=== PATIENT | male | born 1965 | race Caucasian/White ===

== ENCOUNTER 2021-11-24 08:56 | Day surgery (SDC) | payer BC ==
[2021-11-23 09:22] VITALS: BMI 31.6
[~2021-11-24 08:56] MED LIST: LACTATED RINGERS 1,000 ML IV SCH; SODIUM CHLORIDE 0.9% 1,000 ML IV SCH; fentaNYL (PF) 50 MCG/ML 2 ML AMP IV PRN
[2021-11-24 10:22] LABS: Calcium 10.3 mg/dL (8.4-10.2); Potassium 3.8 mmol/L (3.5-5.1)
[2021-11-24] MEDS ORDERED: LIDOCAINE 2% INJ 20 MG/ML (2 ML VIAL) ONE (10:35)
[2021-11-24] MEDS ORDERED: PROPOFOL 10 MG/ML 20 ML VIAL IV ONE (10:35)
[2021-11-24 11:23] VITALS: RESP 16; TEMP 98
[2021-11-24 13:08] VITALS: BP 125/73; PULSE 70
--- NOTE | 2021-11-25 06:53 | ECHOT ---
TRANSESOPHAGEAL ECHOCARDIOGRAM INDICATION: Persistent atrial fibrillation to rule out intracardiac thrombus. PROCEDURE NOTE: After obtaining informed consent, transesophageal echocardiogram was performed in left lateral position using an Omniplane probe. Local and IV sedation were obtained by the office communication professor. The patient tolerated the procedure well without any obvious immediate complications. A 2D color Doppler and spectral analysis had been performed. FINDINGS: 1. There is no intracardiac thrombus within the left atrial appendage, left atrium, right atrium, right ventricle, or left ventricle. 2. There is mild biatrial enlargement. 3. Left ventricle has normal size and systolic function. 4. Aortic valve is a 3-leaflet valve. There is no evidence of aortic stenosis or regurgitation. 5. Mitral valve appears anatomically normal. There is mild central mitral regurgitation noted. There is mild tricuspid regurgitation noted. 6. Interatrial septum, there is no evidence of [id number] shunt by color-flow Doppler or [id number] shunt by agitated saline contrast study. CONCLUSION: 1. No intracardiac thrombus. 2. Normal left ventricular function. PLAN: We will proceed with cardioversion. MMODL / IJN: [id number] /
== END 2021-11-24 12:40 | disposition home or self-care (01) ==
LOC: CATHCVL 08:56
PROVIDERS: ATTEND Internal Medicine Cardiovascular Disease
DX: I48.19 Other persistent atrial fibrillation (principal); I10 Essential (primary) hypertension; E78.5 Hyperlipidemia, unspecified; G47.33 Obstructive sleep apnea (adult) (pediatric); K21.9 Gastro-esophageal reflux disease without esophagitis; Z79.01 Long term (current) use of anticoagulants; Z79.899 Other long term (current) drug therapy; Z79.811 Long term (current) use of aromatase inhibitors; Z88.6 Allergy status to analgesic agent
CPT/HCPCS: 93312; 93320; 93325; 92960; 80048; J2704; J2001

== ENCOUNTER 2024-06-28 15:39 | Observation (INO) | payer BC ==
--- NOTE | 2024-06-28 17:10 | ED ---
Abdominal Pain HPI - General Source: patient, RN notes reviewed Mode of arrival: ambulatory Limitations: no limitations <Magui Cid - Last Filed: 06/28/24 17:09> - General Source: patient, family (), RN notes reviewed Mode of arrival: ambulatory Limitations: no limitations <Adriana Bradshaw - Last Filed: 06/29/24 06:05> - General Chief Complaint: Abdominal Pain Stated Complaint: ABD Pain Time Seen by Provider: 06/28/24 15:58 - History of Present Illness Initial Comments: Quick [id number] male presenting to the emergency department for complaint of left flank pain patient to the ambulance started at 1500 this evening. Patient states he noticed that his urine was discolored. Denies history of kidney stones. (Magui Cid) 58-year-old male with a past medical history significant of atrial fibrillation on Xarelto, GERD, hypertension and hyperlipidemia presenting to the ER for evaluation of left flank pain. Patient states around 3:20 PM he started to expe rience a severe left flank pain. He states pain did radiate into his left lower quadrant. He states most of his pain currently is in his left lower quadrant. Patient does report this morning he noticed his urine was very dark. He denies any dysuria. Patient also admits to nausea and vomiting given pain. He has not taken anything for pain at this time. Patient denies a history of kidney stones or kidney disease. Patient does admit to diarrhea but states this is chronic in nature. Prior hernia repair no history of bowel resections. Patient denies any fevers, chills, chest pain, shortness of breath, constipation or peripheral edema. (Adriana Bradshaw) - Related Data Home Medications Medication Instructions Recorded Confirmed Anastrozole [Arimidex] 1 mg PO MOWEFR@2100 11/23/21 06/28/24 Atorvastatin [Lipitor] 10 mg PO DAILY 11/23/21 06/28/24 Latanoprostene Bunod [Vyzulta] 1 drop BOTH EYES HS 11/23/21 06/28/24 Pantoprazole [Protonix] 40 mg PO HS 11/23/21 06/28/24 Rivaroxaban [Xarelto] 20 mg PO HS 11/23/21 06/28/24 Sertraline [Zoloft] 50 mg PO DAILY 11/23/21 06/28/24 atenoloL 100 mg PO HS 11/23/21 06/28/24 Losartan/Hydrochlorothiazide 1 tab PO DAILY 06/28/24 06/28/24 [Hyzaar 100-25 Tablet] Allergies Allergy/AdvReac Type Severity Reaction Status Date / Time acetaminophen [From Tylenol] AdvReac SNEEZING, Verified 06/28/24 19:52 RUNNY NOSE Review of Systems ROS Other: All systems not noted in ROS Statement are negative. <Magui Cid - Last Filed: 06/28/24 17:09> ROS Other: All systems not noted in ROS Statement are negative. <Adriana Bradshaw - Last Filed: 06/29/24 06:05> ROS Statement: Those systems with pertinent positive or pertinent negative responses have been documented in the HPI. Past Medical History Past Medical History: Atrial Fibrillation, Cancer, Eye Disorder, GERD/Reflux, Hyperlipidemia, Hypertension Additional Past Medical History / Comment(s): BILAT GLAUCOMA. HX SKIN CANCER- CHEST AREA 23 YRS AGO History of Any Multi-Drug Resistant Organisms: None Reported Past Surgical History: Hernia Repair Additional Past Surgical History / Comment(s): REMOVAL MELANOMA CHEST AREA Past Anesthesia/Blood Transfusion Reactions: No Reported Reaction Past Psychological History: Anxiety Smoking Status: Never smoker - Past Family History Mother Family Medical History: No Reported History <Magui Cid - Last Filed: 06/28/24 17:09> General Exam Limitations: no limitations <Magui Cid - Last Filed: 06/28/24 17:09> General appearance: alert, in no apparent distress Respiratory exam: Present: normal lung sounds bilaterally. Absent: respiratory distress, wheezes, rales, rhonchi, stridor Cardiovascular Exam: Present: regular rate, normal rhythm, normal heart sounds. Absent: systolic murmur, diastolic murmur, rubs, gallop, clicks GI/Abdominal exam: Present: soft, normal bowel sounds. Absent: distended, tenderness, guarding, rebound, rigid Extremities exam: Present: normal inspection, full ROM, normal capillary refill. Absent: tenderness, pedal edema, joint swelling, calf tenderness Back exam: Present: normal inspection Neurological exam: Present: alert, oriented X3, CN II-XII intact Skin exam: Present: warm, dry, intact, normal color. Absent: rash <Adriana Bradshaw - Last Filed: 06/29/24 06:05> - General Exam Comments Initial Comments: Visual Physical Exam Vital signs reviewed General: Well-appearing, nontoxic, no acute distress. Head: Normocephalic, atraumatic Eyes: PERRLA, EOMI ENT: Airway patent Chest: Nonlabored breathing Skin: No visual rash, normal skin tone Neuro: Alert and oriented 3 Musculoskeletal: No gross abnormalities (Magui Cid) Course <Adriana Bradshaw - Last Filed: 06/29/24 06:05> Vital Signs 06/28/24 06/28/24 06/28/24 16:07 19:41 20:56 Temperature 97.5 F L 98.5 F Pulse Rate 85 99 95 Respiratory 17 18 16 Rate Blood Pressure 190/108 150/84 131/88 O2 Sat by Pulse 98 99 95 Oximetry - Reevaluation(s) Reevaluation #1: 06/28/24 19:51 Case discussed with Sound physician, Dr. Alan accepts admission. He would a lso like urology on consult and aware as patient may need ureteral stent given left-sided hydronephrosis. Case also discussed with on-call urology, who accepts consultation. (Adriana Bradshaw) Medical Decision Making <Magui Cid - Last Filed: 06/28/24 17:09> - Lab Data Result diagrams: 06/29/24 02:44 06/29/24 02:44 - Radiology Data Radiology results: report reviewed, image reviewed <Adriana Bradshaw - Last Filed: 06/29/24 06:05> - Medical Decision Making I completed the quick note portion of this chart signed Magui Cid PA-C (Magui Cid) Was pt. sent in by a medical professional or institution (MAYA Arnett, ECHOCARDIOGRAPHER, urgent care, hospital, or [facility]...) When possible be specific @ -No Did you speak to anyone other than the patient for history (EMS, parent, family, police, friend...)? What history was obtained from this source @ -Patient's , at bedside, aiding in HPI and past medical history. Did you review nursing and triage notes (agree or disagree)? Why? @ -I reviewed and agree with nursing and triage notes Were old charts reviewed (outside hosp., previous admission, EMS record, old EKG, old radiological studies, urgent care reports/EKG's, [facility] records)? Report findings @ -No old charts were reviewed Differential Diagnosis (chest pain, altered mental status, abdominal pain women, abdominal pain men, vaginal bleeding, weakness, fever, dyspnea, syncope, headache, dizziness, GI bleed, back pain, seizure, CVA, palpatations, mental health, musculoskeletal)? @ -Differential Abdominal Pain Men:Appendicitis, cholecystitis, diverticulosis, ischemic bowel, pancreatitis, hepatitis, UTI, gastroenteritis, AAA, incarcerated hernia, bowel obstruction, constipation, inflammatory bowel, hepatitis, peptic ulcer disease, splenic infarction, perforated viscus, testicular torsion, this is not meant to be an all-inclusive list EKG interpreted by me (3pts min.). @ -None done X-rays interpreted by me (1pt min.). @ -None done CT interpreted by me (1pt min.). @ -CT abdomen pelvis showing mild hydronephrosis with a prominent left kidney. There is also perinephric stranding to the left kidney concerning of pyelonephritis. Irregular lobular density within the mid abdomen may be some enlarged abnormal adenopathy consider lymphoma. U/S interpreted by me (1pt. min.). @ -None done What testing was considered but not performed or refused? (CT, X-rays, U/S, labs)? Why? @ -None What meds were considered but not given or refused? Why? @ -None Did you discuss the management of the patient with other professionals (professionals i.e. , PA, ECHOCARDIOGRAPHER, lab, RT, psych nurse, health social work professor, surgical device sales representative, teacher, tank officer, shelter case manager)? Give summary @ -Yes, case discussed with sound physician, Dr. Howe, who accepts admission. He is requesting urology consultation and notification for possible stent placement given hydronephrosis. Case discussed with on-call urology, who accepts consultation. Was smoking cessation discussed for >3mins.? @ -No Was critical care preformed (if so, how long)? @ -No Were there social determinants of health that impacted care today? How? (Homelessness, low income, unemployed, alcoholism, drug addiction, transportation, low edu. Level, literacy, decrease access to med. care, custodial, rehab)? @ -No Was there de-escalation of care discussed even if they declined (Discuss DNR or withdrawal of care, Hospice)? DNR status @ -No What co-morbidities impacted this encounter? (DM, HTN, Smoking, COPD, CAD, Cancer, CVA, ARF, Chemo, Hep., AIDS, mental health diagnosis, sleep apnea, mo rbid obesity)? @ -Atrial fibrillation is on Xarelto, History of melanoma, GERD, hypertension, hyperlipidemia. Was patient admitted / discharged? Hospital course, mention meds given and route, prescriptions, significant lab abnormalities, going to OR and other pertinent info. @ -Admitted. 58-year-old male presented the ER for evaluation of left flank pain. Upon rooming, history and physical exam completed. Vitals within acceptable limits. Patient appears in pain no signs of acute distress. Laboratory studies showed a leukocytosis of 13 with a left shift. YEN with a BUN of 22, creatinine 1.34 with a GFR 58. Hyperkalemia 3.4, this was supplemented. Urine is hemorrhagic with 76 RBCs and large blood. Given concern of obstructing calculi CT abdomen pelvis was performed showing mild hydronephrosis with a prominent left kidney with surrounding perinephric stranding concerning of recent obstruction and/or pyelonephritis. There is also an irregular lobular density within the mid abdomen may be some enlarged abnormal adenopathy consider lymphoma and/or other etiologies. Patient started on IV Rocephin, blood cultures obtained prior to antibiotic initiation, for treatment of pyleonephritis. Patient given symptomatic control in the ER. Given YEN, concern of pyelonephritis and abnormal abdominal density visualized on CAT scan admission was considered and discussed with sound physician, Dr. Alan, who accepts admission. He is requesting urology consultation and notification of left-sided hydronephrosis for possible need of stent placement. call center support representative urology, , was notified and agreeable for consultation. Upon reevaluation, patient resting comfortably on stretcher no signs of acute distress. Laboratory, urinalysis and abnormal CT findings discussed with patient including concern of possible malignancy. All questions answered. Patient is agreeable for admission. Patient admitted in stable condition. Case discussed with ED attending of Dr. Malay. Undiagnosed new problem with uncertain prognosis? @ -No Drug Therapy requiring intensive monitoring for toxicity (Heparin, Nitro, Insulin, Cardizem)? @ -No Were any procedures done? @ -No Diagnosis/symptom? @ -YEN/pyelonephritis/hypokalemia/abnormal CT scan Acute, or Chronic, or Acute on Chronic? @ -Acute Uncomplicated (without systemic symptoms) or Complicated (systemic symptoms)? @ -Complicated Side effects of treatment? @ -No Exacerbation, Progression, or Severe Exacerbation? @ -No Poses a threat to life or bodily function? How? (Chest pain, USA, DC, pneumonia, PE, COPD, DKA, ARF, appy, cholecystitis, CVA, Diverticulitis, Homicidal, Suicidal, threat to staff... and all critical care pts) @ -Yes, pyelonephritis can lead to sepsis and/or encountering dysfunction. Cannot rule out malignancy. (Adriana Bradshaw) - Lab Data Lab Results 06/28/24 06/28/24 06/28/24 Range/Units 17:10 18:18 18:18 WBC 13.04 H (4.50-10.00) 10*3/uL RBC 5.47 (4.40-5.60) 10*6/uL Hgb 16.7 (13.0-17.0) g/dL Hct 48.2 (39.6-50.0) % MCV 88.1 (80.0-97.0) fL MCH 30.5 (27.0-32.0) pg MCHC 34.6 (32.0-37.0) g/dL Plt Count 189 (140-440) 10*3/uL MPV 11.2 (9.5-12.2) fL Immature Gran % (Auto) 0.5 % Neutrophils % 89.7 % Lymphocytes % 4.8 % Monocytes % 4.4 % Eosinophils % 0.2 % Basophils % 0.4 % Immature Gran # 0.06 H (0.00-0.04) 10*3/uL Neutrophils # 11.72 H (1.80-7.70) 10*3/uL Lymphocytes # 0.62 L (0.90-5.00) 10*3/uL Monocytes # 0.57 (0.20-1.00) 10*3/uL Eosinophils # 0.02 L (0.04-0.35) 10*3/uL Basophils # 0.05 (0.00-0.10) 10*3/uL Sodium 142 (137-145) mmol/L Potassium 3.4 L (3.5-5.1) mmol/L Chloride 100 (98-107) mmol/L Carbon Dioxide 29 (22-30) mmol/L Anion Gap 13 mmol/L BUN 22 H (9-20) mg/dL Creatinine 1.34 H (0.66-1.25) mg/dL Est GFR (CKD-EPI)AfAm 67 (>60 ml/min/1.73 sqM) Est GFR (CKD-EPI)NonAf 58 (>60 ml/min/1.73 sqM) Glucose 123 H (74-99) mg/dL Calcium 10.1 (8.4-10.2) mg/dL Total Bilirubin 2.6 H (0.2-1.3) mg/dL AST 28 (17-59) U/L ALT 26 (4-49) U/L Alkaline Phosphatase 81 (38-126) U/L Total Protein 7.7 (6.3-8.2) g/dL Albumin 4.8 (3.5-5.0) g/dL Lipase 131 (23-300) U/L Urine Color Light Yellow Urine Appearance Clear (Clear) Urine pH 5.5 (5.0-8.0) Ur Specific [place] 1.019 (1.001-1.035) Urine Protein 1+ H (Negative) Urine Glucose (UA) Negative (Negative) Urine Ketones Negative (Negative) Urine Blood Large H (Negative) Urine Nitrite Negative (Negative) Urine Bilirubin Negative (Negative) Urine Urobilinogen <2.0 (<2.0) mg/dL Ur Leukocyte Esterase Negative (Negative) Urine RBC 76 H (0-5) /hpf Urine WBC 3 (0-5) /hpf Urine Mucus Rare H (None) /hpf Disposition <Magui Cid - Last Filed: 06/28/24 17:09> Time of Disposition: 19:48 <Adriana Bradshaw - Last Filed: 06/29/24 06:05> Clinical Impression: YEN (acute kidney injury), Abnormal CT scan, Pyelonephritis, acute, Hypokalemia Disposition: ADMITTED IP TO THIS HOSP Condition: Stable
[2024-06-28 18:21] LABS: Appearance,Urine Clear (Clear); Bilirubin,Urine Negative (Negative); Blood,Urine Large (Negative); Color,Urine Light Yellow; Glucose,Urine (UA) Negative (Negative); Ketones,Urine Negative (Negative); Leukocyte Esterase,Urine Negative (Negative); Mucus,Urine Rare /hpf; Nitrite,Urine Negative (Negative); PH, Urine 5.5 (5.0-8.0); Protein,Urine 1+ (Negative); RBC,Urine 76 /hpf (0-5); Specific Gravity,Urine 1.019 (1.001-1.035); Urobilinogen,Urine <2.0 mg/dL (<2.0); WBC,Urine 3 /hpf (0-5)
[2024-06-28] MEDS: SODIUM CHLORIDE 0.9% 1,000 ML IV ONE (18:27)
[2024-06-28] MEDS: HYDROmorphone 1 MG/ML 1 ML SYRINGE IVP STA ×2 (18:28→19:24)
[2024-06-28] MEDS: ONDANSETRON 4 MG/2 ML VIAL IVP STA (18:31)
[2024-06-28 18:33] LABS: Basophils # (A) 0.05 10*3/uL (0.00-0.10); Basophils % (A) 0.4 %; Eosinophils # (A) 0.02 10*3/uL (0.04-0.35); Eosinophils % (A) 0.2 %; HCT 48.2 % (39.6-50.0); HGB 16.7 g/dL (13.0-17.0); Lymphocytes # (A) 0.62 10*3/uL (0.90-5.00); Lymphocytes % (A) 4.8 %; MCH 30.5 pg (27.0-32.0); MCHC 34.6 g/dL (32.0-37.0); MCV 88.1 fL (80.0-97.0); Mean Platelet Volume 11.2 fL (9.5-12.2); Monocytes # (A) 0.57 10*3/uL (0.20-1.00); Monocytes % (A) 4.4 %; Neutrophils # (A) 11.72 10*3/uL (1.80-7.70); Neutrophils % (A) 89.7 %; Platelet Count 189 10*3/uL (140-440); RBC 5.47 10*6/uL (4.40-5.60); RDW 13.4 % (11.5-14.5); WBC 13.04 10*3/uL (4.50-10.00)
[2024-06-28 19:03] LABS: ALT 26 U/L (4-49); AST 28 U/L (17-59); African American GFR (CKD) 67 (>60 ml/min/1.73 sqM); Albumin 4.8 g/dL (3.5-5.0); Alkaline Phosphatase 81 U/L (38-126); Anion Gap 13 mmol/L; Blood Urea Nitrogen 22 mg/dL (9-20); Calcium 10.1 mg/dL (8.4-10.2); Carbon Dioxide 29 mmol/L (22-30); Chloride 100 mmol/L (98-107); Glucose 123 mg/dL (74-99); Lipase 131 U/L (23-300); Non-African American GFR(CKD) 58 (>60 ml/min/1.73 sqM); Potassium 3.4 mmol/L (3.5-5.1); Sodium 142 mmol/L (137-145); Total Bilirubin 2.6 mg/dL (0.2-1.3); Total Protein 7.7 g/dL (6.3-8.2)
--- NOTE | 2024-06-28 19:10 | CT ---
EXAMINATION TYPE: CT abdomen pelvis wo con DATE OF EXAM: 06/28/2024 5:39 PM COMPARISON: None. CLINICAL INDICATION: Male, 58 years old with history of L flank pain, left flank pain TECHNIQUE: Axial images were obtained from above the diaphragm to the pubic rami in the axial plane a t 5 mm thick sections. Reconstructed images are reviewed on the computer in the coronal plane. CONTRAST: mL of . Study performed without Oral Contrast DLP: 582.6 mGycm, Automated exposure control for dose reduction was used. FINDINGS: Limited CT sections are obtained the lung bases. Large calcified granuloma is in the posterior later al left lung base.r. CT ABDOMEN: There is a lobular density within the mid abdomen estimated to measure 2.5 x 3.5 cm. Exam ple image series 201 image 73. Adenopathy is within the differential. Consider carcinoid within the d ifferential. Additional workup is recommended. Liver: There is a 2.6 cm subtle hypodensity within the anterior right lobe liver. Additional workup i s recommended Spleen: Spleen appears enlarged and contains several punctate calcifications. Craniocaudal dimension is 13.0 cm, Normal less than 12.5. Pancreas: Normal Adrenal glands: The adrenal glands are normal. Gallbladder: Normal Kidneys: Left kidney is slightly prominent with some minimal perinephric stranding. Mild left hydrone phrosis appears to be present. Inflammatory changes are adjacent to the proximal ureter. No obstructi ng ureteral stones are identified. Consider recent passage of a ureteral stone. No suspicious calcifi cation within the urinary bladder is evident. Pyelonephritis should be considered. Given the abnorma l findings within the mid abdomen, consider lymphoma. No renal stones on the right kidney are evident. No renal cysts are evident. Aorta: Vascular calcification is within the aorta. Inferior vena cava: Normal. CT PELVIS: Loops of bowel within the abdomen and pelvis are normal. Diverticular changes are within the sigmoi d colon. No acute diverticulitis is evident. Study is without oral contrast. Appendix: Normal as visualized. Urinary bladder: Decompressed with limited evaluation Genitourinary structures: Uterus appears unremarkable. Adnexa are normal. Osseous structures: No suspicious lytic or sclerotic lesions. IMPRESSION: 1. Mild hydronephrosis with a prominent left kidney. Consider recent obstruction or pyelonephritis. 2. Irregular lobular density within the mid abdomen may be some enlarged abnormal adenopathy. Conside r lymphoma. Other etiologies should be considered. [facility], , 06/28/2024 7:07 PM
[2024-06-28] MEDS ORDERED: ONDANSETRON 4 MG/2 ML VIAL IVP PRN (19:44)
[2024-06-28] MEDS ORDERED: NALOXONE 0.4 MG/ML 1 ML VIAL IV PRN (19:44)
[2024-06-28] MEDS ORDERED: HYDROmorphone 1 MG/ML 1 ML SYRINGE IVP PRN (19:44)
[2024-06-28] MEDS: POTASSIUM CHLORIDE ER 10 MEQ TAB.ER.PRT PO STA (20:52)
[2024-06-28] MEDS: SODIUM CHLORIDE 0.9% 1,000 ML IV SCH ×2 (20:53→21:01)
[2024-06-28] MEDS ORDERED: RX INFO: IV CONTRAST WAS GIVEN 1 EACH MISC MISCELLANE PRN (21:24)
--- NOTE | 2024-06-28 21:40 | P.HPIM ---
History of Present Illness H&P Date: 06/28/24 Chief Complaint: Abdominal pain Patient is a 58 year old male with past medical history of atrial fibrillation, GERD, hyperlipidemia, hypertension, hernia repair presents to the ED with abdominal pain. Patient reports left flank pain that started at 3:20 PM today. He also reports radiation of the pain to the left lower quadrant and suprapubic area. He mentions that his urine was brown this morning. Denies dysuria. Associated with that he has also experienced nausea and vomiting. Denies taking any medications at home for his symptoms. At the time this interview, patient notes seeing a few stones in his urine a few minutes ago. He denies any prior history of kidney stones. Additionally he reports drinking 2 beers a day, denies smoking or drug use. He also has history of hernia repair. Denies fever, chills, shortness of breath, cough, chest pain, palpitations, dysuria, hematochezia, melena, headache, slurred speech, numbness, tingling, dizziness, lightheadedne ss. ED documentation reviewed. In the ED patient was treated with Dilaudid 1 mg, ondansetron 4 mg, 1 L normal saline bolus. Vitals on admission T 97.5 F, CT 85 beats per minute, RR 17, BP 190/108, oxygen 98% on room. Repeat vitals: 90.5 F temperature, BP 150/84, pulse rate [address] shows mild hydronephrosis with prominent left kidney, consider recent obstruction or pyelonephritis. No ureteral stones identified. Irregular lobular density within the mid abdomen may be some enlarged abnormal adenopathy, consider lymphoma. Diverticular changes within the sigmoid colon without acute diverticulitis Labs on admission show WBC 13.04, hemoglobin 16.7, platelet count 189, sodium 142, potassium 3.4, bicarb 29, anion gap 13, BUN 22, creatinine 1.34, total bilirubin 2.6, lipase 131 UA shows 1+ protein, large blood, 76 RBC, rare mucus Review of systems: Pertinent positives and negatives as discussed in HPI, a complete review of systems was performed and all other systems are negative. Physical examination: Vital signs reviewed General: nontoxic, no distress, appears at stated age Derm: warm, dry, intact Head: atraumatic, normocephalic, symmetric Eyes: EOMI, anicteric sclera Mouth: no lip lesion, mucus membranes moist Cardiovascular: S1 S2 reg, no murmur Lungs: CTA bilateral, no rhonchi, no rales, no accessory muscle use Abdominal: soft, non-tender to palpation Extremities: No cyanosis, clubbing, or pedal edema. Neuro: Alert, Oriented, Gross neurological examination did not reveal any focal deficits. Psych: well appearing, appropriate affect Assessment/Plan: Patient is a 58 year old male with past medical history of atrial fibrillation, GERD, hyperlipidemia, hypertension, hernia repair presents to the ED with abdominal pain. Active: #. Left hydronephrosis, possible recent passage of kidney stones #. Elevated creatinine - Creatinine 1.34 on admission - UA shows 1+ protein, large blood, 76 RBC, rare mucus - Abdomen Pelvis CT shows mild left hydronephrosis with prominent left kidney with minimal perinephric stranding, consider recent obstruction or pyelonephritis. Inflammatory changes are adjacent to the proximal ureter. No obstructing ureteral stones identified. No renal stones on the right kidney. No renal cysts - Received Dilaudid 1 mg once in the ED Continue Dilaudid 1 mg IVP every 3 hours as needed for pain management, Continue ondansetron 4 mg IVP every 8 hours as needed for nausea and vomiting - Discontinue Rocephin - Obtain blood culture, lactic acid, renal baldder ultrasound - Strain urine - Appreciate Urology expertise for possible ureteral stent placement #. Abnormal CT abd pelvis showing irregular density in mid abdomen -Abdomen Pelvis CT shows Irregular lobular density within the mid abdomen may be some enlarged abnormal adenopathy, consider lymphoma. Diverticular changes within the sigmoid colon without acute diverticulitis -Patient denies B symptoms -Obtain LDH -Obtain CT chest with neck #. Leukocytosis, likely reactive - WBC 13.04 on admission - monitor CBC #. Hypokalemia -Potassium 3.4 on admission -Replace potassium, potassium chloride 10 mEq once in the ED -Monitor BMP Chronic: #. Atrial fibrillation, on anticoagulation, failed cardioversion(2021) #. Hypertension #. Hyperlipidemia #. GERD #. Anxiety/depression -Continue atenolol 100 mg p.o. at bedtime, losartan 100hydrochlorothiazide 25 1 tablet p.o. daily, atorvastatin 10 mg p.o. daily, pantoprazole 40 mg p.o. at bedtime, sertraline 50 mg p.o. daily -Hold Xarelto F: 0.9 normal saline 75 mL/h E: Replete potassium N: Regular diet, NPO after midnight DVT prophylaxis: SCD GI prophylaxis: Pantoprazole 40 mg PO daily The patient is admitted with an anticipated more than 2 midnight stay for evaluation of abdominal pain CODE STATUS: FULL CODE Discussed with: Patient Anticipated discharge place: Home Past Medical History Past Medical History: Atrial Fibrillation, Cancer, Eye Disorder, GERD/Reflux, Hyperlipidemia, Hypertension Additional Past Medical History / Comment(s): BILAT GLAUCOMA. HX SKIN CANCER- CHEST AREA 23 YRS AGO History of Any Multi-Drug Resistant Organisms: None Reported Past Surgical History: Hernia Repair Additional Past Surgical History / Comment(s): REMOVAL MELANOMA CHEST AREA Past Anesthesia/Blood Transfusion Reactions: No Reported Reaction Past Psychological History: Anxiety Smoking Status: Never smoker - Past Family History Mother Family Medical History: No Reported History Medications and Allergies Home Medications Medication Instructions Recorded Confirmed Type Anastrozole [Arimidex] 1 mg PO MOWEFR@2100 11/23/21 06/28/24 History Atorvastatin [Lipitor] 10 mg PO DAILY 11/23/21 06/28/24 History Latanoprostene Bunod [Vyzulta] 1 drop BOTH EYES HS 11/23/21 06/28/24 History Pantoprazole [Protonix] 40 mg PO HS 11/23/21 06/28/24 History Rivaroxaban [Xarelto] 20 mg PO HS 11/23/21 06/28/24 History Sertraline [Zoloft] 50 mg PO DAILY 11/23/21 06/28/24 History atenoloL 100 mg PO HS 11/23/21 06/28/24 History Losartan/Hydrochlorothiazide 1 tab PO DAILY 06/28/24 06/28/24 History [Hyzaar 100-25 Tablet] Allergies Allergy/AdvReac Type Severity Reaction Status Date / Time acetaminophen [From Tylenol] AdvReac SNEEZING, Verified 06/28/24 19:52 RUNNY NOSE Physical Exam Vitals: Vital Signs Temp Pulse Resp BP Pulse Ox 06/28/24 19:41 98.5 F 99 18 150/84 99 06/28/24 16:07 97.5 F L 85 17 190/108 98 Intake and Output 06/28/24 06/28/24 06/28/24 06:59 14:59 22:59 Other: Weight 81.647 kg Results CBC & Chem 7: 06/28/24 18:18 06/28/24 18:18 Labs: Abnormal Lab Results - Last 24 Hours (Table) 06/28/24 06/28/24 06/28/24 Range/Units 17:10 18:18 18:18 WBC 13.04 H (4.50-10.00) 10*3/uL Immature Gran # 0.06 H (0.00-0.04) 10*3/uL Neutrophils # 11.72 H (1.80-7.70) 10*3/uL Lymphocytes # 0.62 L (0.90-5.00) 10*3/uL Eosinophils # 0.02 L (0.04-0.35) 10*3/uL Potassium 3.4 L (3.5-5.1) mmol/L BUN 22 H (9-20) mg/dL Creatinine 1.34 H (0.66-1.25) mg/dL Glucose 123 H (74-99) mg/dL Total Bilirubin 2.6 H (0.2-1.3) mg/dL Urine Protein 1+ H (Negative) Urine Blood Large H (Negative) Urine RBC 76 H (0-5) /hpf Urine Mucus Rare H (None) /hpf
[2024-06-28] MEDS: atenoloL 50 MG TAB PO SCH (22:59)
[2024-06-28] MEDS: PANTOPRAZOLE 40 MG TABLET PO SCH (22:59)
[2024-06-29] MEDS ORDERED: HYDROmorphone 0.5 MG/0.5 ML SYRINGE IVP PRN (00:18)
[2024-06-29 03:55] LABS: HCT 42.8 % (39.6-50.0); HGB 14.1 g/dL (13.0-17.0); MCH 29.9 pg (27.0-32.0); MCHC 32.9 g/dL (32.0-37.0); MCV 90.7 fL (80.0-97.0); Mean Platelet Volume 11.3 fL (9.5-12.2); Platelet Count 180 10*3/uL (140-440); RBC 4.72 10*6/uL (4.40-5.60); RDW 13.9 % (11.5-14.5); WBC 7.93 10*3/uL (4.50-10.00)
[2024-06-29 04:25] LABS: African American GFR (CKD) >90 (>60 ml/min/1.73 sqM); Anion Gap 7 mmol/L; Blood Urea Nitrogen 18 mg/dL (9-20); Calcium 8.9 mg/dL (8.4-10.2); Carbon Dioxide 28 mmol/L (22-30); Chloride 102 mmol/L (98-107); Glucose 90 mg/dL (74-99); Non-African American GFR(CKD) 80 (>60 ml/min/1.73 sqM); Potassium 3.7 mmol/L (3.5-5.1); Sodium 137 mmol/L (137-145)
[2024-06-29 04:37] VITALS: TEMP 98.7
--- NOTE | 2024-06-29 08:10 | US ---
EXAMINATION TYPE: US kidneys/renal and bladder DATE OF EXAM: 06/29/2024 Exam done portable COMPARISON: CT 2024 CLINICAL INDICATION: Male, 58 years old with history of Demetrio; Left flank pain TECHNIQUE: Grayscale imaging of the bilateral kidneys and urinary bladder: FINDINGS: EXAM MEASUREMENTS: Right Kidney: 10.3 x 4.4 x 4.9 cm Left Kidney: 11.2 x 5.5 x 5.2 cm Right Kidney: wnl Left Kidney: wnl Bladder: wnl Bilateral Jets seen: yes IMPRESSION: 1. Normal renal ultrasound [facility], , 06/29/2024 8:08 AM
[2024-06-29 08:59] VITALS: BP 137/89; PULSE 89; RESP 18
--- NOTE | 2024-06-29 09:40 | CT ---
EXAMINATION TYPE: CT neck chest w con DATE OF EXAM: 06/28/2024 10:28 PM COMPARISON: None. CLINICAL INDICATION: Male, 58 years old with history of shortness of breath, SOB TECHNIQUE: Axial images at 3 mm thick sections. Reconstructed images in the coronal plane and sagitt al plane are reviewed. Contrast used:80ml mL of Isovue 370 with IV Contrast, (none if empty) Oral contrast used: (none if empty) CT DLP: 690.3 mGycm, Automated exposure control for dose reduction was used. FINDINGS: Limited CT sections are obtained the lung apices. The lung apices appear clear. CT neck: The torus tubarius and fossa of Rosenmuller are normal. Aircraft [employer] Technical [employer] spaces are normal. Para nasal sinuses and mastoid air cells are clear. Parotid glands appear normal and symmetrical. Submandibular glands, are normal. Parapharyngeal spac es are normal. No suspicious adenopathy is evident. There appears to be some subtle asymmetry within the hypopharynx with some slight prominence along th e posterior right tongue fullness in the right inferior tonsillar pillar compared to the left. Underl rik discrete mass however is not identified. Direct visualization is recommended. Example image is s eries 201 image 32. Epiglottis appears normal prevertebral space is normal Vocal cord level appear symmetrical. Thyroid as visualized is normal. Osseous structures are normal. IMPRESSION: 1. Subtle asymmetry within the right hypopharynx. Discrete mass is not radiographically apparent. Dir ect visualization is recommended. EXAMINATION TYPE: CT neck chest w con DATE OF EXAM: 06/28/2024 10:28 PM COMPARISON: None. CLINICAL INDICATION: Male, 58 years old with history of shortness of breath, SOB TECHNIQUE: Axial images were obtained at 5 mm thick sections. Reconstructed images are reviewed on [employer] computer in the coronal plane. Contrast used:80ml mL of Isovue 370 with IV Contrast, (none if empty) Oral contrast used: (none if empty) CT DLP: 690.3 mGycm, Automated exposure control for dose reduction was used. FINDINGS: Portion of the thyroid visualized is normal. There is a 0.6 cm posterior lateral right lung nodule. Series 304 image 33. Large calcified granuloma s lateral left lung sulcus. Minimal pleural thickenings along the lateral right lung. Series 304 imag e 38. There is a 1.0 cm pretracheal lymph node present. Additional shotty lymphadenopathy is present within the pretracheal space and mediastinum. The ascending aorta diameter at the level of the main pulmon rey artery is 3.3 cm. The main pulmonary artery diameter at the bifurcation is 2.5 cm. Small hiatal hernia may be present. No significant coronary artery calcifications. Limited CT sections are obtained through the upper abdomen. Abdomen is essentially unremarkable. IMPRESSION: 1. Small lung nodules. Follow-up exam in 6 months is recommended. [facility], , 06/29/2024 9:38 AM
--- NOTE | 2024-06-29 09:53 | P.GSCN ---
History of Present Illness Consult date: 06/29/24 History of present illness: 58 yo male presented to the er with abrupt onset left flank pain radiating to the llq . There was no history of trauma. His ua showed microhematuria. His ct scan showed perinephric stranding with mild hydronephrosis. No stones were seen He doesnot have a history of stones. Also on the ct scan was a possible mid abdominal mass 2.5x3.5 cm away from the ureter. The patient is no longer having pain. Of note the patient does have chronic diarrhea.The patient stated that when he urinated he did notice some stones in the toilet. This is the first time he had ever seen anything like that. He did not collect them. Review of Systems All systems: negative - Constitutional Denies fever, Denies weight loss - EENT Eyes: denies blurred vision Ears, nose, mouth and throat: Denies dysphagia - Cardiovascular Denies chest pain, Denies shortness of breath - Respiratory Denies cough, Denies 7 - Gastrointestinal Reports as per HPI - Genitourinary Denies dysuria, Denies hematuria - Integumentary Denies rash, Denies unusual bruising - Neurological Denies headaches, Denies syncope - Hematologic/Lymphatic Denies easy bleeding, Denies easy bruising Past Medical History Past Medical History: Atrial Fibrillation, Cancer, Eye Disorder, GERD/Reflux, Hyperlipidemia, Hypertension Additional Past Medical History / Comment(s): BILAT GLAUCOMA. HX SKIN CANCER- CHEST AREA 23 YRS AGO History of Any Multi-Drug Resistant Organisms: None Reported Past Surgical History: Hernia Repair Additional Past Surgical History / Comment(s): REMOVAL MELANOMA CHEST AREA Past Anesthesia/Blood Transfusion Reactions: No Reported Reaction Past Psychological History: Anxiety Smoking Status: Never smoker - Past Family History Mother Family Medical History: No Reported History Medications and Allergies Home Medications Medication Instructions Recorded Confirmed Type Anastrozole [Arimidex] 1 mg PO MOWEFR@2100 11/23/21 06/28/24 History Atorvastatin [Lipitor] 10 mg PO DAILY 11/23/21 06/28/24 History Latanoprostene Bunod [Vyzulta] 1 drop BOTH EYES HS 11/23/21 06/28/24 History Pantoprazole [Protonix] 40 mg PO HS 11/23/21 06/28/24 History Rivaroxaban [Xarelto] 20 mg PO HS 11/23/21 06/28/24 History Sertraline [Zoloft] 50 mg PO DAILY 11/23/21 06/28/24 History atenoloL 100 mg PO HS 11/23/21 06/28/24 History Losartan/Hydrochlorothiazide 1 tab PO DAILY 06/28/24 06/28/24 History [Hyzaar 100-25 Tablet] Allergies Allergy/AdvReac Type Severity Reaction Status Date / Time acetaminophen [From Tylenol] AdvReac SNEEZING, Verified 06/28/24 19:52 RUNNY NOSE Surgical - Exam Vital Signs Temp Pulse Resp BP Pulse Ox 97.5 F L 85 17 190/108 98 06/28/24 16:07 06/28/24 16:07 06/28/24 16:07 06/28/24 16:07 06/28/24 16:07 Results - Labs 06/29/24 02:44 06/29/24 02:44 Abnormal Lab Results - Last 24 Hours (Table) 06/28/24 06/28/24 06/28/24 Range/Units 17:10 18:18 18:18 WBC 13.04 H (4.50-10.00) 10*3/uL Immature Gran # 0.06 H (0.00-0.04) 10*3/uL Neutrophils # 11.72 H (1.80-7.70) 10*3/uL Lymphocytes # 0.62 L (0.90-5.00) 10*3/uL Eosinophils # 0.02 L (0.04-0.35) 10*3/uL Potassium 3.4 L (3.5-5.1) mmol/L BUN 22 H (9-20) mg/dL Creatinine 1.34 H (0.66-1.25) mg/dL Glucose 123 H (74-99) mg/dL Total Bilirubin 2.6 H (0.2-1.3) mg/dL Urine Protein 1+ H (Negative) Urine Blood Large H (Negative) Urine RBC 76 H (0-5) /hpf Urine Mucus Rare H (None) /hpf Diabetes panel 06/28/24 06/29/24 Range/Units 18:18 02:44 Sodium 142 137 (137-145) mmol/L Potassium 3.4 L 3.7 (3.5-5.1) mmol/L Chloride 100 102 (98-107) mmol/L Carbon Dioxide 29 28 (22-30) mmol/L BUN 22 H 18 (9-20) mg/dL Creatinine 1.34 H 1.02 (0.66-1.25) mg/dL Glucose 123 H 90 (74-99) mg/dL Calcium 10.1 8.9 (8.4-10.2) mg/dL AST 28 (17-59) U/L ALT 26 (4-49) U/L Alkaline Phosphatase 81 (38-126) U/L Total Protein 7.7 (6.3-8.2) g/dL Albumin 4.8 (3.5-5.0) g/dL Calcium panel 06/28/24 06/29/24 Range/Units 18:18 02:44 Calcium 10.1 8.9 (8.4-10.2) mg/dL Albumin 4.8 (3.5-5.0) g/dL Pituitary panel 06/28/24 06/29/24 Range/Units 18:18 02:44 Sodium 142 137 (137-145) mmol/L Potassium 3.4 L 3.7 (3.5-5.1) mmol/L Chloride 100 102 (98-107) mmol/L Carbon Dioxide 29 28 (22-30) mmol/L BUN 22 H 18 (9-20) mg/dL Creatinine 1.34 H 1.02 (0.66-1.25) mg/dL Glucose 123 H 90 (74-99) mg/dL Calcium 10.1 8.9 (8.4-10.2) mg/dL Adrenal panel 06/28/24 06/29/24 Range/Units 18:18 02:44 Sodium 142 137 (137-145) mmol/L Potassium 3.4 L 3.7 (3.5-5.1) mmol/L Chloride 100 102 (98-107) mmol/L Carbon Dioxide 29 28 (22-30) mmol/L BUN 22 H 18 (9-20) mg/dL Creatinine 1.34 H 1.02 (0.66-1.25) mg/dL Glucose 123 H 90 (74-99) mg/dL Calcium 10.1 8.9 (8.4-10.2) mg/dL Total Bilirubin 2.6 H (0.2-1.3) mg/dL AST 28 (17-59) U/L ALT 26 (4-49) U/L Alkaline Phosphatase 81 (38-126) U/L Total Protein 7.7 (6.3-8.2) g/dL Albumin 4.8 (3.5-5.0) g/dL - Imaging CT scan - abdomen: report reviewed, image reviewed CT scan - pelvis: report reviewed, image reviewed Assessment and Plan Assessment: Impression: acute left flank pain and colic, abnormal ct scan of left kidney both c/w a recent stone passage. Recommendations. With the radiating flank pain, abrupt onset, mlld hydro and perinephric stranding, microhematuria, the visualization of stones in the toilet and chronic diarrhea this is all c/w a stone passage. Given that there is no stone in hand and the other possible abnormality he should have a fu urine in our or Dr. Amaro'soffice to make sure the urine clears. Time with Patient: Greater than 30
[2024-06-29] MEDS: ATORVASTATIN 10 MG TAB PO SCH (10:32)
[2024-06-29] MEDS: LOSARTAN-HCTZ 50-12.5 MG 1 EACH TAB PO SCH (10:33)
[2024-06-29] MEDS: SERTRALINE 50 MG TAB PO SCH (10:33)
--- NOTE | 2024-06-29 10:58 | P.DS ---
Providers Date of admission: 06/28/24 19:29 Expected date of discharge: 06/29/24 Attending physician: Magdiel Howe MD Consults: 06/28/24 19:44 Consult Physician Urgent Consulting Provider: Zack Gordon Consult Reason/Comments: hydronephrosis Do you want consulting provider notified?: Yes Primary care physician: Lee Ronak [facility] Course: Discharge diagnoses; #Left hydronephrosis, possible recent passage of kidney stones #Elevated creatinine #Abnormal CT abd pelvis showing irregular density in mid abdomen #Leukocytosis, likely reactive, resolved #Hypokalemia, resolved #Atrial fibrillation, on anticoagulation, failed cardioversion(2021) #Hypertension #Hyperlipidemia #GERD #Anxiety/depression Hospital course; Patient is a 58 year old male with past medical history of atrial fibrillation, GERD, hyperlipidemia, hypertension, hernia repair presents to the ED with abdominal pain. Patient reports left flank pain that started at 3:20 PM today. He also reports radiation of the pain to the left lower quadrant and suprapubic area. He mentions that his urine was brown this morning. Denies dysuria. Associated with that he has also experienced nausea and vomiting. During the duration of his stay, he received medication for nausea and pain, and endorsed having what he believes is the passage of his kidney stones. During his admissi on he underwent CT abdomen/pelvis which showed mild hydronephrosis with a prominent left kidney, without evidence of stone; incidental finding of irregular lobular density within the mid abdomen which may be some enlarged, abnormal adenopathy. Additionally, CT neck/chest was done which showed small pulm nodules, recommending follow-up exam in 6 months. he endorses no discomfort this morning, and a complete resolution to the discomfort that originally brought him in as well as the resolution of his laboratory abnormalities. Discussed with him the importance of following up with his primary care physician within 1 week of discharge from the hospital, and encouraged follow-up for further evaluation of incidental abnormalities found on abdominal/pelvis CT. He is excited for discharge this morning. Physical Exam: General: nontoxic, no distress, appears at stated age Derm: warm, dry, intact Head: atraumatic, normocephalic, symmetric Eyes: EOMI, anicteric sclera Mouth: no lip lesion, mucus membranes moist Cardiovascular: S1 S2 reg, no murmur, rubs, or gallops Lungs: CTA bilateral, no rales, no accessory muscle use Abdominal: soft, non-tender to palpataion, no appreciable organomegaly Extremities: no gross muscle atrophy, no edema, no contractures Neuro: Alert, Oriented, CNII-XII grossly intact, gait normal Psych: well appearing, appropriate affect Dictation was produced using [employer] dictation software. please excuse any grammatical, word or spelling errors. Miki Hauser MD PGY-1 IM A total of 38 minutes of time were spent preparing this complex discharge summ rey. Patient was discharged on 06/29/24 at [facility] [facility]. I have seen and evaluated the patient today. Discussed with the resident and agree with the residents finding and plan as documented in the resident's note. Changes highlighted in blue font. Patient Condition at Discharge: Stable Plan - Discharge Summary Discharge Rx Participant: Yes New Discharge Prescriptions: Continue Sertraline [Zoloft] 50 mg PO DAILY atenoloL 100 mg PO HS Rivaroxaban [Xarelto] 20 mg PO HS Latanoprostene Bunod [Vyzulta] 1 drop BOTH EYES HS Losartan/Hydrochlorothiazide [Hyzaar 100-25 Tablet] 1 tab PO DAILY Anastrozole [Arimidex] 1 mg PO MOWEFR@2100 Atorvastatin [Lipitor] 10 mg PO DAILY Pantoprazole [Protonix] 40 mg PO HS Discharge Medication List Anastrozole [Arimidex] 1 mg PO MOWEFR@2100 11/23/21 [History] Atorvastatin [Lipitor] 10 mg PO DAILY 11/23/21 [History] Latanoprostene Bunod [Vyzulta] 1 drop BOTH EYES HS 11/23/21 [History] Pantoprazole [Protonix] 40 mg PO HS 11/23/21 [History] Rivaroxaban [Xarelto] 20 mg PO HS 11/23/21 [History] Sertraline [Zoloft] 50 mg PO DAILY 11/23/21 [History] atenoloL 100 mg PO HS 11/23/21 [History] Losartan/Hydrochlorothiazide [Hyzaar 100-25 Tablet] 1 tab PO DAILY 06/28/24 [History] Follow up Appointment(s)/Referral(s): Lee Amaro MD [Primary Care Provider] - 1-2 days (Please make appointment when office) Zack Gordon MD [STAFF PHYSICIAN] - 1 Week (Please make appointment when office is open) Patient Instructions/Handouts: Kidney Stones (GEN) Activity/Diet/Wound Care/Special Instructions: Abnormal lung nodule on CT with some associated abdominal lymphadenopathy that needs further follow up outpatient. Abnormal lung nodules recommending [address] scan. Please follow up with your primary care physician and urology within 1 week of d ischarge. Discharge Disposition: HOME SELF-CARE
[2024-06-29] MEDS ORDERED: NON FORMULARY DRUG (Latanoprostene Bunod [Vyzulta] 5 ML Ml) BOTH EYES SCH (21:00)
[2024-06-29] MEDS ORDERED: RIVAROXABAN 20 MG TAB PO SCH (21:00)
[2024-07-01] MEDS ORDERED: ANASTROZOLE 1 MG TAB PO SCH (21:00)
== END 2024-06-29 12:09 | disposition home or self-care (01) ==
LOC: EC 15:39 → 1SOBS 19:29
PROVIDERS: ADMIT Internal Medicine; ATTEND Internal Medicine
DX: N13.30 Unspecified hydronephrosis (principal); D72.829 Elevated white blood cell count, unspecified; E87.6 Hypokalemia; R93.5 Abnormal findings on diagnostic imaging of other abdominal regions, including retroperitoneum; R79.89 Other specified abnormal findings of blood chemistry; K52.9 Noninfective gastroenteritis and colitis, unspecified; K21.9 Gastro-esophageal reflux disease without esophagitis; I48.91 Unspecified atrial fibrillation; I10 Essential (primary) hypertension; E78.5 Hyperlipidemia, unspecified; F32.A Depression, unspecified; F41.9 Anxiety disorder, unspecified; Z85.820 Personal history of malignant melanoma of skin; Z79.899 Other long term (current) drug therapy; Z79.01 Long term (current) use of anticoagulants; Z88.6 Allergy status to analgesic agent
CPT/HCPCS: 96376; 96365; 96375; 99284; 36415; 80053; 80048; 83605; 83615; 83690; 85025; 85027; 81001; 87040; 76770; 70491; 71260; 74176; G0378 ×2; J2405; J0696; J1171; Q9967

== ENCOUNTER → 2024-07-12 | Outpatient (CLI) | payer BC ==
--- NOTE | 2024-07-12 13:10 | PE ---
EXAMINATION TYPE: PET CT fusion skull to thigh DATE OF EXAM: 07/12/2024 COMPARISON: 06/28/2024 Prior PET/CT: No prior PET/CT dislocation CLINICAL INDICATION: Male, 58 years old with history of Z85.89 PERSONAL HISTORY OF MALIGNANT NEOPLASM OF O, TECHNIQUE: Following the intravenous administration of 10.32 mCi of F-18 FDG, whole body images are performed PET CT fusion skull to thigh. Images are reviewed on the computer in the coronal, axial, a nd sagittal planes. Reconstructed rotating images are created on independent workstation and reviewe d on the computer. A localization and attenuation correction CT is performed in conjunction with e PET scan. DLP: 765.16 mGycm SCAN: Initial Blood glucose: 98 mg/dL Average Mediastinum SUV: 2.35 Average Liver SUV: 2.9 FINDINGS: NECK: No abnormal uptake THORAX: No abnormal uptake ABDOMEN: No abnormal uptake. Attention is paid to the lobular density within the mid abdomen. This has low signal, similar to back ground, example image 198. No suspicious uptake at this level. PELVIS: No specific suspicious uptake. However, there is uptake along the rectosigmoid region. Recomm end direct visualization. Underlying neoplasm is not excluded, this could be normal colonic uptake. OSSEOUS STRUCTURES: No suspicious uptake LOCALIZATION CT: There is persistence of a lobular density within the mid abdomen mild wall thickenin g of the rectosigmoid region is not excluded. COMPARISON: Findings on the localization CT are similar to the prior CT abdomen and pelvis. IMPRESSION: 1. There are some scattered areas of slight increased uptake through the rectosigmoid region. Direct visualization is recommended. This could be normal uptake within the colon. Underlying neoplasm at is level however is not excluded. 2. No suspicious uptake at the soft tissue density within the midabdomen. 3. No additional suspicious areas of uptake to suggest neoplasm [facility], Workstation: [facility], 07/12/2024 1:08 PM
== END | disposition home or self-care (01) ==
LOC: RADPETMAIN 06:32
PROVIDERS: ATTEND Family Medicine
DX: Z85.89 Personal history of malignant neoplasm of other organs and systems (principal)
CPT/HCPCS: 78815; A9552

== ENCOUNTER 2024-07-19 06:29 | Day surgery (SDC) | payer BC ==
[2024-07-18 09:41] VITALS: BMI 29.8
[~2024-07-19 06:29] MED LIST changes: -LACTATED RINGERS 1,000 ML IV SCH; +LIDOCAINE 1% (10MG/ML) FOR IV START INTRADERMA PRN; -SODIUM CHLORIDE 0.9% 1,000 ML IV SCH; -fentaNYL (PF) 50 MCG/ML 2 ML AMP IV PRN
[2024-07-19] MEDS: IV FLUID CONTINUATION 1,000 ML IV ONE ×3 (06:54→07:20)
[2024-07-19] MEDS: LACTATED RINGERS 1,000 ML IV SCH (07:04)
[2024-07-19 07:07] VITALS: TEMP 96.9
[2024-07-19] MEDS ORDERED: PROPOFOL 10 MG/ML 20 ML VIAL IV ONE (07:21)
[2024-07-19] MEDS ORDERED: LIDOCAINE 1% INJ 10MG/ML (20 ML MDV) ONE (07:21)
--- NOTE | 2024-07-19 07:45 | P.PCN ---
Date of Procedure: 07/19/24 Procedure(s) Performed: Brief history: Patient is a pleasant 58-year-old white male scheduled for an elective upper endoscopy as well as colonoscopy as a part of evaluation of GERD and screening for colon cancer Procedure performed: Esophagogastroduodenoscopy with biopsy Colonoscopy with snare polypectomy Preoperative diagnosis: GERD Screening for colon cancer Anesthesia: MAC Procedure: After informed consent was obtained from the patient was brought into the endoscopy unit and IV sedation was administered by anesthesia under continuous monitoring. Initially upper endoscopy was done. The Olympus GF 160 video endoscope was inserted inserted into the mouth and esophagus intubated without any difficulty and was gradually advanced into the stomach and duodenum and carefully examined. The bulb and second part of the duodenum appeared normal. The scope was then withdrawn into the stomach adequately insufflated with air and upon careful examination the antrum and body, cardia and fundus had multiple small gastric polyps which were biopsied. Al. The scope was then withdrawn into the esophagus. The GE junction was located at 45 cm to the incisors. It appeared irregular with no erythema erosions or ulcerations. There was a 3 mm tongue of Connor's appearing mucosa proximal to the GE junction that was biopsied. Rest of the esophagus appeared normal. Patient tolerated the procedure well. At this time the patient continued to remain sedation. Initial digital rectal examination was normal. Olympus CF 160 video colonoscope was then inserted into the rectum and gradually advanced to the cecum without any difficulty. Careful examination was performed as the scope was gradually being withdrawn. The prep was excellent. The cecum, ascending colon, appeared normal. The transverse colon there was an 8 mm polyp that was removed by cold snare polypectomy. Rest of the transverse colon, descending colon, sigmoid colon and rectum appeared normal. Scattered sigmoid diverticulosis. Retroflexion was performed in the rectum and small internal hemorrhoid s were noted. Patient tolerated the procedure well. Impression: 1. Upper endoscopy revealed multiple gastric polyps and short segment Connor's esophagus 2. Colonoscopy revealed 8 mm transverse colon polyp status post cold snare polypectomy, scattered sigmoid diverticulosis and small internal hemorrhoids Recommendations: Findings of this examination were discussed with the patient as well as his family. He was advised to follow with the biopsy results. If the biopsy confirms the presence of Connor's esophagus he can have repeat upper endoscopy in 3 years. If the biopsy reveals adenoma he can have repeat colonoscopy in 5 years.
[2024-07-19 08:36] VITALS: BP 128/77; PULSE 70; RESP 18
== END 2024-07-19 08:46 | disposition home or self-care (01) ==
LOC: ORWHC2ENDO 06:29
PROVIDERS: ATTEND Internal Medicine Gastroenterology
DX: Z12.11 Encounter for screening for malignant neoplasm of colon (principal); D12.3 Benign neoplasm of transverse colon; K31.7 Polyp of stomach and duodenum; K21.9 Gastro-esophageal reflux disease without esophagitis; K57.30 Diverticulosis of large intestine without perforation or abscess without bleeding; K22.70 Barrett's esophagus without dysplasia; E78.5 Hyperlipidemia, unspecified; F41.9 Anxiety disorder, unspecified; I48.91 Unspecified atrial fibrillation; I10 Essential (primary) hypertension; N20.0 Calculus of kidney; Z79.02 Long term (current) use of antithrombotics/antiplatelets; Z87.19 Personal history of other diseases of the digestive system; Z79.899 Other long term (current) drug therapy
CPT/HCPCS: 88305; 45385; 43239; J2003; J2704